=== PATIENT | female | born 1945 | race Caucasian/White ===

== ENCOUNTER 2025-01-16 17:34 | Emergency (ER) | payer MEDICARE, SELFPAY ==
[2025-01-16 17:52] VITALS: BP 171/83
[2025-01-16 20:36] VITALS: BP 133/85
--- NOTE | 2025-01-16 22:06 | ED.GENMED ---
History of Present Illness
General
Chief Complaint: Post Operative Problem(s)
Source: patient and family
Time Seen by Provider: 01/16/25 20:20
History of Present Illness
History of Present Illness:
79-year-old female who presents after her wound from arteriogram started bleeding. The patient states that she had a procedure at an outside hospital. She states she was home and had reached for spoon and all of a sudden started to squirt
everywhere. She states she did get under control but had already called 911. They found her to be extremely hypertensive. They called her doctor who asked them to recheck her blood pressure. Because it remained elevated, advised her to come to
the hospital. Patient states the bleeding is since subsided. Blood pressure since improved and she feels okay. Family states they are worried because she was bleeding so profusely. Daughter is worried that she could bleed again at home
Past History
Past History
ED Past Medical History: HTN and Other (Fibromuscular dysplasia)
Phy Exam
Physical Exam
Physical Exam:
CONSTITUTIONAL Vital signs reviewed, Patient alert and oriented to person, place and time. Well-appearing
HEAD atraumatic, normocephalic.
EYES eyelids normal to inspection, Extraocular muscles intact, Conjunctiva normal, Sclera normal.
NECK normal range of motion, Trachea midline, no jugular venous distention.
RESP no respiratory distress
BACK No obvious deformities
UPPER EXTREMITY Gross Range of motion normal, gross motor strength normal. Right radial puncture wound noted with no active bleeding. There is some surrounding ecchymosis
LOWER EXTREMITY Gross range of motion normal, Gross motor strength normal
NEURO Speech normal, No focal motor deficits include, Gilbert coma scale 15, Memory normal, Cranial Nerves intact to screening exam.
SKIN Skin warm, dry, and normal in color.
PSYCHIATRIC Patient oriented to person place and time, Normal affect.
Course
Vital Signs
Initial and Last Documented VS:
Initial Vital Signs
Temp Pulse Resp BP Pulse Ox
98.6 F 75 18 171/83 100
01/16/25 17:52 01/16/25 17:52 01/16/25 17:52 01/16/25 17:52 01/16/25 17:52
Last Documented Vital Signs
Temp Pulse Resp BP Pulse Ox
98.6 F 73 16 133/85 96
01/16/25 17:52 01/16/25 20:36 01/16/25 20:36 01/16/25 20:36 01/16/25 20:36
MDM/Problems Addressed
MDM/Problems Addressed:
Postoperative bleeding
Acute Exacerbation and/or Progression of Chronic Illness: HTN
*Pulse Oximetry
Patient hypoxic: no
*Critical Care Note
Total Time (30-74mins, 75-104mins- exclusive of procedures): Not Applicable
Data Reviewed
Source: patient
Patient Management
Escalation/DeEscalation of care consider admission/obs:
Compressive dressing applied. Patient monitored and observed. No further bleeding noted. Advised patient to leave the dressing intact for the next 36 hours. She will follow-up as an outpatient. Also given advice for bleeding control if it were
to occur again.
ED Attending Note
-
Portions of this chart may have been created with voice recognition software.� Occasional wrong word or��sound alike� substitutions may have occurred due to the inherent limitations of voice recognition software.
Discharge Plan
Departure
Patient Disposition: Home (Routine Discharge)
Date of Disposition: 01/16/25
Time of Disposition: 22:06
Patient with high blood pressure during this ER visit?: No
Discharge Problem:
Bleeding from wound
Instructions: Bleeding After Surgery
Referrals:
Marya Crump MD [Family Provider] -
Activity Restrictions/Additional Instructions:
Return immediately for worsening or recurrent bleeding or any other concerns. Please keep dressing intact for the next 36 hours. Return for numbness, tingling or any other concerns.
Interventions
Interventions:
*Risk Screen - Suicide Last Done: 01/16/25 20:12
*General Assessment Last Done: 01/16/25 20:12
*Neglect/Abuse Screening Last Done: 01/16/25 20:12
*ED COVID-19 Vaccine History Last Done: 01/16/25 20:12
*Nursing Disposition Last Done: 01/16/25 22:16
ED-Skin Assessment Last Done: 01/16/25 20:12
Discharge Date and Time
Discharge Date/Time: 01/16/25 22:17
Print Language: [place] ISLAND[place]
== END 2025-01-16 22:17 | disposition home or self-care (01) ==
LOC: EMR 17:34
PROVIDERS: EMERGENCY PHYSICIAN Emergency Medicine; FAMILY PHYSICIAN Internal Medicine Geriatric Medicine
DX: L76.22 Postprocedural hemorrhage of skin and subcutaneous tissue following other procedure (principal); I10 Essential (primary) hypertension
CPT/HCPCS: 99283

== ENCOUNTER 2025-08-29 07:12 | Inpatient (IN) | payer OTHER, SELFPAY ==
[2025-08-28 16:00] VITALS: BP 138/93
[2025-08-28] MEDS: ROXICODONE 10 MG PO ×2 (17:12→20:14)
--- NOTE | 2025-08-28 19:42 | ED.GENMED ---
History of Present Illness
General
Chief Complaint: Fall
Source: patient
Exam Limitations: none
Time Seen by Provider: 08/28/25 19:27
Nursing documentation reviewed up to this point in time: agreed with
History of Present Illness
History of Present Illness:
80-year-old female with past medical history of hypertension, chronic back pain status post multiple surgeries, chronic neuropathy who presents to the emergency department for evaluation of bilateral ankle injury. Patient currently lives
independently at [facility]; she is able to get around on her own in the apartment but for long distances she needs a rollator. Patient reports that she has neuropathy and poor sensation in the feet chronically. She says that today she was
sitting at the table for a long time and when she stood up her feet were asleep and she lost her balance and fell backwards. She landed on her left hip and while she was going to the ground she says she inverted both ankles. She says she did not
hit her head or lose consciousness. EMS was called to bring her to the hospital. She complains of bilateral left greater than right ankle pain as well as left hip pain. She has chronic back pain but she says no worse than usual. Denies any neck
pain. Denies any rib pain or abdominal pain. Denies any pain in the upper extremities. She is on baby aspirin but no other blood thinners she says.
Past History
Past History
ED Past Medical History: HTN and Other (Fibromuscular dysplasia)
Review of Systems
Review of Systems
All Other Systems: ROS reviewed and negative except as documented in HPI and ROS
Respiratory: Denies trouble breathing
Cardiac: Denies chest pain
ABD/GI: Denies abdominal pain, nausea or vomiting
: Denies flank pain
Musculoskeletal: Reports joint pain (Bilateral ankle and left hip); Denies neck pain or back pain (Chronic and unchanged)
Neurological: Denies dizzy or headache
Phy Exam
Physical Exam
Physical Exam:
General: Awake, alert, oriented x3; no acute distress
Head: Normocephalic, atraumatic
Eyes: Conjunctiva normal
Throat: Airway intact, handling secretions
Neck: Trachea midline, no cervical spine tenderness, cervical surgical scars noted
Back: No signs of trauma the back or flank and no tenderness in the thoracic or lumbar spine; lumbar surgical scars noted
Lungs: Breathing comfortably with no evidence of respiratory distress
Heart: Regular rate, no chest wall tender
Abd: Soft, non distended, nontender
[place] warm and dry, no lacerations or abrasions
Extremities: On exam of the left lower extremity she has tenderness over the greater trochanter and left buttock but no bruising; she does have some pain on range of motion of the left hip; on exam of the left knee she has some mild tenderness over
the proximal fibula but no deformity, no joint effusion and good range of motion in the knee; on exam of the left ankle she has tenderness and bruising over the left lateral malleolus but no tenderness of the malleolus, fifth metatarsal, midfoot; on
exam of the right lower extremity she has no tenderness in the right hip and good range of motion without pain; she has some mild proximal fibular tenderness on the right but no joint effusion and good range of motion in the knee; on exam of the
right ankle she has some tenderness over the lateral malleolus anteriorly but no significant amount of swelling, no tenderness of the medial malleolus or calcaneus, no tenderness along the fifth metatarsal or the midfoot; she has good pulses
throughout both legs femoral, popliteal, DP //examination of the upper extremities reveals no tenderness or signs of trauma and she moves both arms freely without pain
Scores
Heart Failure Risk
Heart Failure Risk Score: Not Applicable
Heart Score for Chest Pain Patients
STEMI patient?: Not applicable
Withdrawal Assessment of Alcohol
Withdrawal Assessment Completed?: Not applicable
Course
Orders/Labs/Results
Orders:
Orders
08/28/25 16:04
Ankle, left 3 view CR [CR Ankle - Left Min 3 Views ] Urgent
Comment:
Reason For Exam: pain
CR Ankle - Right Min 3 Views * Urgent
Comment:
Reason For Exam: pain
08/28/25 17:09
Oxycodone [Roxicodone] 10 mg .ROUTE .STK-MED ONE
08/28/25 17:11
Oxycodone [Roxicodone] 10 mg PO NOW STA
08/28/25 19:40
Case Management Consult ONCE
Case Management Consult: Group Home Placement
CR Leg Tibia/fibula Left 2 Vw Urgent
Comment:
Reason For Exam: fibular pain and ttp s/p ankle injury
CR Leg Tibia/fibula Right 2 Vw Urgent
Comment:
Reason For Exam: fibular pain and ttp s/p ankle injury
Pt Eval And Treat Urgent
Activity Level: With Assistance
08/28/25 19:41
Ortho Boot Left- Treatment ONCE
Short or tall?: Short
CR Hip - LT w/wo Pel 2-3 Vw* Urgent
Comment:
Reason For Exam: left hip pain s/p fall
Include a pelvis x-ray?: Yes
08/28/25 20:08
Oxycodone [Roxicodone] 10 mg PO NOW STA
Vital Signs
Initial and Last Documented VS:
Initial Vital Signs
Temp Pulse Resp BP Pulse Ox
36.8 C 71 18 138/93 95
08/28/25 16:00 08/28/25 16:00 08/28/25 16:00 08/28/25 16:00 08/28/25 16:00
Last Documented Vital Signs
Temp Pulse Resp BP Pulse Ox
36.8 C 71 18 138/93 95
08/28/25 16:00 08/28/25 16:00 08/28/25 16:00 08/28/25 16:00 08/28/25 19:48
MDM/Problems Addressed
Differential Diagnosis Includes:
Hip pain: Hip contusion, bursitis, fracture (femoral, pelvic)
Ankle injuries: Sprain, fracture
MDM/Problems Addressed:
80-year-old female presents after a fall as described above. She complains of pain in both ankles also complains of some left hip pain. No head trauma or any other serious injuries and she is not on blood thinners. Vitals and exam are as above.
She was sent for bilateral ankle x-rays in triage�reviewed by me right ankle x-ray no fracture noted but she does have a fibular fracture on the left. Will plan to obtain x-rays of the proximal tibia/fib bilaterally as she does have some tenderness
along the proximal fibula bilaterally. Will obtain x-ray of the left hip as well. Will place a splint on the left ankle. Discussed with patient�currently lives independently and with bilateral leg injury and baseline ambulatory status somewhat
tenuous will need to be kept overnight pending case management/PT consultation for safe placement/disposition.
X-rays reviewed by ne proximal fractures of the lower legs bilaterally and no hip fracture noted. Patient due for evening dose of oxycodone which we provided. Admit for case management/PT. Discussed with hospitalist.
*Radiology
Radiology exam reviewed: preliminary read by ED provider
*Pulse Oximetry
SaO2: 95
Oxygen Mode of Delivery: Room air
Patient hypoxic: no (95%)
*Critical Care Note
Total Time (30-74mins, 75-104mins- exclusive of procedures): Not Applicable
Data Reviewed
Source: patient and records
Patient Management
Social determinants of health affecting care: Living situation (Lives independently)
Escalation/DeEscalation of care consider admission/obs:
Admission indicated
ED Attending Note
-
Portions of this chart may have been created with voice recognition software.� Occasional wrong word or��sound alike� substitutions may have occurred due to the inherent limitations of voice recognition software.
Discharge Plan
Departure
Patient Disposition: Admit
Date of Disposition: 08/28/25
Time of Disposition: 21:11
Admit to doctor: [facility]
Presentation/result/management discussed w/ accepting MD/DO: Hospitalist
Discharge Problem:
Fracture of left fibula, Right ankle sprain, Contusion of left hip
Referrals:
UNKNOWN - PT DOES,NOT KNOW [Family Provider]
Interventions
Interventions:
*Risk Screen - Suicide Last Done: 08/28/25 16:00
*Neglect/Abuse Screening Last Done: 08/28/25 16:00
*ED- Fall Risk Assessment Last Done: 08/28/25 16:00
ED-Musculoskeletal Assessment Last Done: 08/28/25 17:00
ED- Neurological Assessment Last Done: 08/28/25 17:00
ED-Skin Assessment Last Done: 08/28/25 17:00
Discharge Date and Time
Print Language: NORTHER[place] IRISH
--- NOTE | 2025-08-28 21:15 | HPS.HSE ---
Addendum entered and electronically signed by Mehul Kessler DO 08/28/25 22:10:
Patient seen and examined independently. Agree with findings and plan as set forth by JULITO Quijano.
Patient is a 80y F with PMH significant for hypertension and chronic back pain who presents to ED complaining of bilateral ankle pain s/p fall this afternoon. Patient states that she was sleeping in a chair for some time today. When she woke
and stood, she had lost feeling in her legs and she fell - twisting to the left. She denies striking her head, losing consciousness or any prodrome of lightheadedness, dizziness, chest pain, etc.
Patient noted immediate pain in both ankles after the fall.
She presented to the ED for evaluation and x-rays revealed fracture of the L ankle.
Ass:
Left Ankle Fracture
Right Ankle Sprain
Fall at Home
Peripheral Neuropathy
Chronic Back Pain / DDD
Benign Hypertension
Plan:
Observe overnight for further evaluation and treatment.
Maintain splint / boot to the L ankle.
Pain control / supportive care.
PT / OT evaluations.
Ortho follow-up as an outpatient for L ankle fracture.
Continue usual home med regimen for chronic pain, hypertension, etc.
Original Note:
Family Physician
-
Family Physician: NOT KNOW UNKNOWN - PT DOES
Chief Complaint
-
fall
History of Present Illness
80-year-old female with past medical history of hypertension, chronic back pain status post multiple surgeries, chronic neuropathy who presents to the emergency department for evaluation of bilateral ankle injury. she is from [facility].
Patient reports that she has neuropathy and poor sensation in the feet chronically. She says that today she was sitting at the table for a long time and she fell asleep and when she stood up her feet were asleep and she lost her balance and fell
backwards. she fell on her left side, and twisted bilateral ankle. She says she did not hit her head or lose consciousness. she has chronic back pain. denied RODRIGUEZ, dizzy or syncope. denied fever, chills, chest pain, sob. denied abdominal pain,n,v,d.
denied dysuria or hematuria.
x ray with ankle fracture. admitting for further work management.
Medical History
Past Medical History
Past Medical History: Reports Other
Additional Past Medical History:
HTN
degenerative disk disease
HLD
neuropathy
chronic back pain
Past Surgical History: Reports Other
Additional Past Surgical History:
back surgery
d&C
b/l knee replacement
right hip replacement
left shoulder replacement
Social History
Tobacco: Non-smoker
Alcohol: None
Drug: None
Family History
Family History: Not pertinent
Allergies / Home Medications
Allergies reflects when Allergies were last updated in [email or web address].
Home Medications with original date entered in [email or web address]
Allergy/Medication List:
Allergies
Allergy/AdvReac Type Severity Reaction Status Date / Time
tramadol Allergy Unknown Verified 01/16/25 17:56
Home Medications
amlodipine 10 mg tablet 10 mg PO DAILY 08/28/25
benazepril 40 mg tablet 40 mg PO DAILY 08/28/25
carvedilol 12.5 mg tablet (Coreg) 12.5 mg PO BID 08/28/25
gabapentin 300 mg capsule 300 mg PO DAILY 08/28/25
gabapentin 600 mg tablet 600 mg PO HS 08/28/25
nortriptyline 10 mg capsule 10 mg PO HS 08/28/25
oxycodone 10 mg tablet,oral ONLY (not feeding tubes) 10 mg PO Q8H 08/28/25
rosuvastatin 5 mg tablet 5 mg PO DAILY 08/28/25
Review of Systems
-
Constitutional: Reports No Symptoms
EENT: Reports No Symptoms
Respiratory: Reports No Symptoms
Cardiac: Reports No Symptoms
Abdomen/GI: Reports No Symptoms
: Reports No Symptoms
Musculoskeletal: Reports Other (b/l ankle pain)
Skin: Reports No Symptoms
Neurological: Reports No Symptoms
Endocrine: Reports No Symptoms
Hematologic/Lymphatic: Reports No Symptoms
Psych: Reports No Symptoms
Physical Exam
Vital Signs
Vital Signs
Temp Pulse Resp BP Pulse Ox
98.3 F 71 18 138/93 95
08/28/25 16:00 08/28/25 16:00 08/28/25 16:00 08/28/25 16:00 08/28/25 19:48
Physical Exam
General: Well Developed, Well Nourished and No Apparent Distress
HEENT: NormoCephalic, Moist mucous membranes and Atraumatic
Respiratory: Clear
Cardiac: S1/S2 and Regular Rhythm; No Murmur or Rub
GI: Soft, Non Tender, Non Distended and Normal Bowel Sounds; No Organomegaly
Rectal: Deferred by Provider
Musculoskeletal: No Clubbing, No Cyanosis and Other (right ankle edema)
Skin: No Rash
Neuro: AO x 3 and Nonfocal/grossly intact
Psych: Calm
Impression/Plan
-
#mechanical fall with left ankle fracture
#right ankle sprain
#left hip contusion
-PT consulted
-CM consulted for placement
-left ortho boot in place.
#essential HTN
-Norvasc, benazepril, coreg continued
#neuropathy
-gabapentin continued
#degenerative disk disease
#chronic back pain
-oxycodone continued
#HLD
-statin continued
#DvT prophylaxis
-heparin sq
#CODE status
-full code
[2025-08-28 21:38] VITALS: BP 117/64; BMI 25.2
[2025-08-28 21:56] LABS: Hematocrit 38.6 % (37.0-47.0); Hemoglobin 12.9 g/dL (12.0-16.0); Mean Corp Hgb Conc. 33.4 g/dL (33.0-37.0); Mean Corpuscular Volume 89.1 fL (81.0-99.0); Platelet Count 269 10^3/uL (130-400); Red Cell Dist. Width 13.1 % (11.5-14.5)
[2025-08-28] MEDS: NEURONTIN 600 MG PO (22:15)
[2025-08-28] MEDS: PAMELOR 10 MG PO (22:15)
[2025-08-28 22:20] LABS: ALT (SGPT) 19 U/L (0-35); AST (SGOT) 22 U/L (14-36); Albumin 4.4 g/dl (3.5-5.0); Alkaline Phosphatase 84 U/L (38-126); Blood Urea Nitrogen 28 mg/dl (7-17); Calcium 9.8 mg/dl (8.4-10.2); Carbon Dioxide 29 mmol/L (22-30); Chloride 103 mmol/L (98-107); Estimated Creatinine Clearance 38 ml/min; Glucose 167 mg/dl (70-99); Potassium 3.5 mmol/L (3.5-5.1); Sodium 137 mmol/L (135-145); Total Protein 6.7 g/dl (6.3-8.2); eGFR 57.66
[2025-08-29] VITALS: BP 122/55
[2025-08-29 00:13] VITALS: BMI 25.9
--- NOTE | 2025-08-29 00:14 | PTCARENOTE ---
Patient arrived from ED to [address],assisted from stretcher to bed. Pt's L ankle in ortho boot, elevated on pillow. Pt AAOx3, oriented to room and plan of care, can make needs known. VSS, assessment on going.
[2025-08-29] MEDS: COLACE 100 MG PO ×3 (00:44→20:31)
[2025-08-29] MEDS: TYLENOL 650 MG PO ×6 (00:45→23:35)
[2025-08-29] MEDS: SENOKOT 17.2 MG PO ×3 (00:45→20:31)
[2025-08-29] MEDS: ROXICODONE 10 MG PO ×4 (00:45→23:35)
[2025-08-29] MEDS: TYLENOL PO (04:50)
[2025-08-29 07:30] VITALS: BP 117/59
[2025-08-29] MEDS: ZESTRIL 40 MG PO (07:58)
[2025-08-29] MEDS: NORVASC 10 MG PO (07:58)
[2025-08-29] MEDS: CRESTOR 5 MG PO (07:59)
[2025-08-29] MEDS: HEPARIN 5000 UNITS SC (07:59)
[2025-08-29] MEDS: COREG 12.5 MG PO (07:59)
[2025-08-29] MEDS: NEURONTIN 300 MG PO (07:59)
--- NOTE | 2025-08-29 09:36 | W.PN.HOSP.TC ---
Today's Communication/Plan
-
Preop EKG
N.p.o. past midnight for surgery
Assessment / Plan
Assessment / Plan
Physical Exam
General: Well Developed, Well Nourished and No Apparent Distress
HEENT: NormoCephalic, Moist mucous membranes and Atraumatic
Respiratory: Clear
Cardiac: S1/S2 and Regular Rhythm; No Murmur or Rub
GI: Soft, Non Tender, Non Distended and Normal Bowel Sounds; No Organomegaly
Rectal: Deferred by Provider
Musculoskeletal: No Clubbing, No Cyanosis and Other (right ankle edema)
Skin: No Rash
Neuro: AO x 3 and Nonfocal/grossly intact
Psych: Calm
# Acute left bimalleolar ankle fracture
#right ankle sprain
#left hip contusion
Unable to walk and discomfort. Not safe for discharge planning without inpatient Ortho evaluation
d/w ortho, plan for open reduction internal fixation of her left ankle fracture on August 30, 2025.
Pain control.
# preop evaluation
Patient denies history of angina, congestive heart failure. She takes her medication for blood pressure without complications. Will get preop EKG. Patient is unable to ambulate and in discomfort. Repair of left ankle fracture outweigh the risk
of surgery. No prohibitive factor to surgery.
#essential HTN
-Norvasc, benazepril, HCTZ, Coreg continued
# Chronic pain syndrome with opioid dependency/history of nonspecific neuropathy
#degenerative disk disease
#chronic back pain
-oxycodone continued
#HLD
-statin continued
#DvT prophylaxis
-heparin sq, holding subcu heparin pending surgery
#CODE status
-full code
Total time spent to see the patient, examine the patient, review data and lab results, discuss treatment plan with patient, orthopedic doctor, nursing staff around 55 minutes�
Anticipated Discharge: > 48 hours
Subjective/Interval History
-
Date of Service: August 29, 2025
She is having pain and swelling in both ankle areas, requesting to see ortho
Objective Data
-
Labs:
Laboratory Results
08/28/25
21:44
WBC 8.2
Hgb 12.9
Hct 38.6
Plt Count 269
Sodium 137
Potassium 3.5
Chloride 103
Carbon Dioxide 29
BUN 28 H
Creatinine 1.0
Glucose 167 H
Calcium 9.8
Total Bilirubin 0.4
AST 22
ALT 19
Alkaline Phosphatase 84
Vital Signs:
Vital Signs
Temp Pulse Resp BP Pulse Ox
97.8 F 58 16 117/59 96
08/29/25 07:30 08/29/25 07:30 08/29/25 07:30 08/29/25 07:30 08/29/25 07:30
--- NOTE | 2025-08-29 10:51 | CON.ORTHO ---
Consultation
-
Date/Time Consultation Requested: 29AUG2025 07:15
Date/Time Consultation Performed: 29AUG2025 09:00
Requesting Provider: Dionne Mendoza
Performing Provider: Murphy Sherman MD
Reason for Consultation: left ankle fracture
Consultation - Orthopedics
History
Ms. Cheng is a 80-year-old female with past medical history hypertension and chronic back pain who presented to us from hospital emergency with bilateral ankle pain after sustaining a ground-level fall at home. She states she was sleeping in a
chair when her feet fell asleep. When she woke up and tried to walk she sustained a mechanical ground-level fall. She states she sustained an inversion injury to her bilateral ankles. She presents to the hospital emergency room where x-rays
determined the patient had a left bimalleolar ankle fracture and a right ankle sprain. Due to her difficulty with ambulation the patient was admitted for pain control and management of her left ankle fracture. Patient denies numbness and tingling.
She denies prior injury or surgery. She has had bilateral total knee arthroplasties performed in the past.
LLE:
Skin intact, swelling about lateral ankle
TTP medial and lateral malleoli
Pain with passive range of motion of the ankle
5/5 dorsi and plantarflexion with pain
Palpable DP PT pulses brisk capillary refill
Sensation intact to light touch in all dermatomes
X-rays of the left ankle performed at [facility] significant for minimally displaced left fibular fracture at the level syndesmosis with a minimally displaced transverse right medial malleolus fracture
X-rays of the right ankle performed at [facility] significant for no obvious fracture, dislocation, or other acute osseous abnormality.
Allergies / Home Medications
Allergy/AdvReac Type Severity Reaction Status Date / Time
tramadol Allergy Unknown Verified 01/16/25 17:56
�Medication �Instructions �Recorded
amlodipine 10 mg tablet 10 mg PO DAILY 08/28/25
benazepril 40 mg tablet 40 mg PO DAILY 08/28/25
carvedilol 12.5 mg tablet (Coreg) 12.5 mg PO BID 08/28/25
gabapentin 300 mg capsule 300 mg PO DAILY 08/28/25
gabapentin 600 mg tablet 600 mg PO HS 08/28/25
nortriptyline 10 mg capsule 10 mg PO HS 08/28/25
oxycodone 10 mg tablet,oral ONLY 10 mg PO Q8H 08/28/25
(not feeding tubes)
rosuvastatin 5 mg tablet 5 mg PO DAILY 08/28/25
hydrochlorothiazide 12.5 mg 08/29/25
Vital Signs / Lab Results
Temp Pulse Resp BP Pulse Ox
97.8 F 58 16 117/59 96
08/29/25 07:30 08/29/25 07:30 08/29/25 07:30 08/29/25 07:30 08/29/25 07:30
08/28/25 21:44
08/28/25 21:44
Assessment / Plan
Ms. Cheng is a 80-year-old female with a left bimalleolar ankle fracture
Due to her difficulty with ambulation she was admitted. With casting or other nonoperative modalities since the patient was hospitalized for her pain and difficulty with ambulation, we will schedule her for open reduction internal fixation of her
left ankle fracture on August 30, 2025. At that time we will likely allow her to bear weight with the assistance of a walker to aid in her rehabilitation and discharge to home. The risk of the procedure including failure fracture to heal, damage
nearby structures, bleeding, infection, or even were discussed. Understanding these risks patient signed consent form for open reduction internal fixation of the left ankle fracture. We will make her n.p.o. at midnight
[2025-08-29] MEDS: ROXICODONE 5 MG PO (12:15)
--- NOTE | 2025-08-29 13:15 | CM ---
Met with patient at bedside
KULKARNI form explained; form signed @ 1300
Pharmacy verified: [facility] @ [id number] [facility] Rina Lucas
Family Physician: Dr. Garcia @ [facility]
Lives in an apartment @ [facility]
PLOF: Was independent w/ personal care; building has elevator access; she was not using a device w/ ambulation in her apartment; used Rollator when she left her home;
had meals in dining room; drives
Her daughter lives nearby in [place]
No recent SNF utilization history; Acute Rehab stay @ [facility] 2017
Home Health needed in November 2023; services provided by [facility]
Surgery planned for tomorrow
Discharge Plan to be determined; Case Management will monitor and support disposition coordination when recommendations identified
[2025-08-29 15:46] VITALS: BP 123/66
[2025-08-29] MEDS: COREG PO ×2 (20:31→21:11)
[2025-08-29] MEDS: NEURONTIN 600 MG PO (21:27)
[2025-08-29] MEDS: PAMELOR 10 MG PO (21:28)
[2025-08-29 23:13] VITALS: BP 117/57
[2025-08-30] VITALS (11 sets, daily range): BP systolic 119–161; BP diastolic 57–135
[2025-08-30] MEDS: TYLENOL PO ×3 (05:19→16:00)
[2025-08-30 07:10] LABS: Hematocrit 36.8 % (37.0-47.0); Hemoglobin 12.5 g/dL (12.0-16.0); Mean Corp Hgb Conc. 34.0 g/dL (33.0-37.0); Mean Corpuscular Volume 90.9 fL (81.0-99.0); Platelet Count 216 10^3/uL (130-400); Red Cell Dist. Width 13.0 % (11.5-14.5)
[2025-08-30 07:47] LABS: Blood Urea Nitrogen 22 mg/dl (7-17); Calcium 9.7 mg/dl (8.4-10.2); Carbon Dioxide 30 mmol/L (22-30); Chloride 106 mmol/L (98-107); Estimated Creatinine Clearance 47 ml/min; Glucose 90 mg/dl (70-99); Potassium 3.9 mmol/L (3.5-5.1); Sodium 139 mmol/L (135-145); eGFR > 60.00
[2025-08-30] MEDS: TYLENOL 650 MG PO ×2 (08:14→20:30)
[2025-08-30] MEDS: SENOKOT PO ×2 (08:15→08:17)
[2025-08-30] MEDS: NORVASC 10 MG PO (08:15)
[2025-08-30] MEDS: CRESTOR 5 MG PO (08:15)
[2025-08-30] MEDS: COLACE PO ×3 (08:15→21:04)
[2025-08-30] MEDS: NEURONTIN 300 MG PO (08:15)
[2025-08-30] MEDS: ROXICODONE 10 MG PO (08:15)
[2025-08-30] MEDS: COREG 12.5 MG PO ×2 (08:15→20:29)
[2025-08-30] MEDS: ZESTRIL 40 MG PO (08:15)
--- NOTE | 2025-08-30 09:24 | W.PN.HOSP.TC ---
Today's Communication/Plan
-
.
Assessment / Plan
Assessment / Plan
Physical Exam
General: Well Developed, Well Nourished and No Apparent Distress
HEENT: NormoCephalic, Moist mucous membranes and Atraumatic
Respiratory: Clear
Cardiac: S1/S2 and Regular Rhythm; No Murmur or Rub
GI: Soft, Non Tender, Non Distended and Normal Bowel Sounds; No Organomegaly
Rectal: Deferred by Provider
Musculoskeletal: No Clubbing, No Cyanosis and Other (right ankle edema)
Skin: No Rash
Neuro: AO x 3 and Nonfocal/grossly intact
Psych: Calm
# Acute left bimalleolar ankle fracture
#right ankle sprain
#left hip contusion
Unable to walk and discomfort. Not safe for discharge planning without inpatient Ortho evaluation
d/w ortho, plan for open reduction internal fixation of her left ankle fracture on August 30, 2025.
Pain control.
# preop evaluation
Patient denies history of angina, congestive heart failure. She takes her medication for blood pressure without complications. Preop EKG with no acute ischemic changes or dysrhythmia except mild bradycardia/first-degree AV block. Patient is
unable to ambulate and in discomfort. Repair of left ankle fracture outweigh the risk of surgery. No prohibitive factor to surgery.
#essential HTN
-Norvasc, benazepril, HCTZ, Coreg continued
Ordered HCTZ postop
# Chronic pain syndrome with opioid dependency/history of nonspecific neuropathy
#degenerative disk disease
#chronic back pain
-oxycodone continued
#HLD
-statin continued
#DvT prophylaxis
-heparin sq, holding subcu heparin pending surgery
#CODE status
-full code
Total time spent to see the patient, examine the patient, review data and lab results, discuss treatment plan with patient, orthopedic doctor, nursing staff around 55 minutes�
Anticipated Discharge: > 48 hours
Subjective/Interval History
-
Date of Service: August 30, 2025
Pain in her ankle, NPO for surgery today
No chest pain or sob
Objective Data
-
Labs:
Laboratory Results
08/30/25
06:13
WBC 5.0
Hgb 12.5
Hct 36.8 L
Plt Count 216
Sodium 139
Potassium 3.9
Chloride 106
Carbon Dioxide 30
BUN 22 H
Creatinine 0.8
Glucose 90
Calcium 9.7
Vital Signs:
Vital Signs
Temp Pulse Resp BP Pulse Ox
97.7 F 64 16 147/83 97
08/30/25 07:00 08/30/25 07:00 08/30/25 07:00 08/30/25 07:00 08/30/25 07:00
--- NOTE | 2025-08-30 09:51 | W.PN.UPDATE ---
Update Note
Progress Note Update
Patient in bed this morning, comfortable. Has been n.p.o. since midnight, pending ORIF left ankle. OR availability likely early afternoon
- Continue n.p.o.
- Pain management as needed
- Likely OR today
[2025-08-30] MEDS: ROXICODONE PO (16:00)
--- NOTE | 2025-08-30 18:21 | W.IMMPOSTOP ---
Surgical Immed Post Op Note
-
Primary Surgeon: Murphy Sherman MD
Assisting Surgeon:
Pre-op Diagnosis: left bimalleolar ankle fracture
Post-op Diagnosis: left bimalleolar ankle fracture
Procedure Performed: open reduction internal fixation left ankle
Anesthesia Type: general with regional
Specimen / Cultures: none
Estimated Blood Loss: 5mL
Complications: none apparent
Operative Findings: bimalleolar ankle fracture
Implants: [place] Variax2 4-hole lateral distal fibula plate; 4.0mm partially threaded 40mm cannulated screws x2
Operative dictation #: [id number]
[2025-08-30] MEDS: SENOKOT 17.2 MG PO (20:29)
[2025-08-30] MEDS: COLACE 100 MG PO (20:29)
[2025-08-30] MEDS: ROXICODONE 5 MG PO (20:30)
[2025-08-30] MEDS: PAMELOR 10 MG PO (21:43)
[2025-08-30] MEDS: NEURONTIN 600 MG PO (21:44)
[2025-08-31] MEDS: ANCEF 5 IV ×2 (00:14→08:28)
[2025-08-31] MEDS: ROXICODONE 10 MG PO ×4 (00:14→23:33)
[2025-08-31] MEDS: TYLENOL 650 MG PO ×6 (00:14→23:33)
--- NOTE | 2025-08-31 01:40 | PTCARENOTE ---
Received pt from pacu s/p left ankle ORIF, alert, ox3, vs stable surgical boot in place.
[2025-08-31] MEDS: TYLENOL PO (04:46)
[2025-08-31 07:15] VITALS: BP 158/79
[2025-08-31 07:32] LABS: Hematocrit 34.8 % (37.0-47.0); Hemoglobin 11.6 g/dL (12.0-16.0); Mean Corp Hgb Conc. 33.3 g/dL (33.0-37.0); Mean Corpuscular Volume 88.5 fL (81.0-99.0); Platelet Count 241 10^3/uL (130-400); Red Cell Dist. Width 13.0 % (11.5-14.5)
[2025-08-31 08:17] LABS: Blood Urea Nitrogen 18 mg/dl (7-17); Calcium 9.4 mg/dl (8.4-10.2); Carbon Dioxide 28 mmol/L (22-30); Chloride 106 mmol/L (98-107); Estimated Creatinine Clearance 47 ml/min; Glucose 135 mg/dl (70-99); Potassium 4.1 mmol/L (3.5-5.1); Sodium 137 mmol/L (135-145); eGFR > 60.00
[2025-08-31] MEDS: ORETIC 12.5 MG PO (08:24)
--- NOTE | 2025-08-31 08:24 | W.PN.ORTHO ---
Today's Communication / Plan
-
80-year-old female postoperative 1 left bimalleolar ankle ORIF with Dr. Sherman
- Partial weightbearing left lower extremity with a cam boot.
- Pain controlled on current regimen with continued nerve block.
- Diet per primary
- Pain per primary
- DVT PPx; aspirin daily either 81 mg twice daily or 325 daily unless recommended otherwise per primary
Suspected right ankle sprain; pending her ability to bear weight if unable to do so recommend advanced imaging of MRI for diagnostic purposes to ensure patient be full weightbearing without causing further harm. Pending response with physical
therapy today. Orthopedic surgery will continue to follow
Assessment
.
Distal Motor Intact: Yes
Dressing:
Clean, dry and intact.
Plan
.
Surgery / Date: L ankle ORIF 08/30
Activity:
Out of bed.
PT/OT
Subjective
.
.:
Patient resting comfortably.
Vital Signs and Labs
.
Vital Signs and Labs:
Lab Results
08/31/25 07:05
08/31/25 07:05
Temp Pulse Resp BP Pulse Ox
98.2 F 94 18 146/87 95
08/30/25 22:15 08/30/25 22:15 08/30/25 22:15 08/30/25 22:15 08/30/25 22:15
[2025-08-31] MEDS: ZESTRIL 40 MG PO (08:25)
[2025-08-31] MEDS: COLACE 100 MG PO ×2 (08:25→20:14)
[2025-08-31] MEDS: CRESTOR 5 MG PO (08:26)
[2025-08-31] MEDS: NEURONTIN 300 MG PO (08:26)
[2025-08-31] MEDS: COREG 12.5 MG PO ×2 (08:27→20:14)
[2025-08-31] MEDS: SENOKOT 17.2 MG PO ×2 (08:27→20:15)
[2025-08-31] MEDS: NORVASC 10 MG PO (08:28)
--- NOTE | 2025-08-31 10:04 | W.PN.HOSP.TC ---
Today's Communication/Plan
-
See plan
Assessment / Plan
Assessment / Plan
Physical Exam
General: Well Developed, Well Nourished and No Apparent Distress
HEENT: NormoCephalic, Moist mucous membranes and Atraumatic
Respiratory: Clear
Cardiac: S1/S2 and Regular Rhythm; No Murmur or Rub
GI: Soft, Non Tender, Non Distended and Normal Bowel Sounds; No Organomegaly
Rectal: Deferred by Provider
Musculoskeletal: No Clubbing, No Cyanosis and Other (right ankle edema)
Skin: No Rash
Neuro: AO x 3 and Nonfocal/grossly intact
Psych: Calm
# Acute left bimalleolar ankle fracture
#right ankle sprain
#left hip contusion
Unable to walk and discomfort. Not safe for discharge planning without inpatient Ortho evaluation
d/w ortho, had open reduction internal fixation of her left ankle fracture on August 30, 2025.
Pain control.
# preop evaluation
Patient denies history of angina, congestive heart failure. She takes her medication for blood pressure without complications. Preop EKG with no acute ischemic changes or dysrhythmia except mild bradycardia/first-degree AV block. Patient was
unable to ambulate and in discomfort. Repair of left ankle fracture outweigh the risk of surgery. No prohibitive factor to surgery.
-I communicated via [place] Text communication with orthopedics that patient should be continued on Aspirin 325 mg daily for 4 weeks, starting today
-Given suspected right ankle sprain; cannot bear weight, ortho recommended advanced imaging of MRI for diagnostic purposes
#essential HTN
-Norvasc, benazepril, HCTZ, Coreg continued
Ordered HCTZ postop
# Chronic pain syndrome with opioid dependency/history of nonspecific neuropathy
#degenerative disk disease
#chronic back pain
-oxycodone continued
#HLD
-statin continued
#DvT prophylaxis
-Aspirin 325 mg daily
#CODE status
-full code
Total time spent to see the patient, examine the patient, review data and lab results, discuss treatment plan with patient, orthopedic doctor, nursing staff around 55 minutes�
Anticipated Discharge: 24 - 48 hours
Subjective/Interval History
-
Date of Service: August 31, 2025
Patient was seen and examined. She denied any complaints.
Objective Data
-
Labs:
Laboratory Results
08/31/25
07:05
WBC 7.8
Hgb 11.6 L
Hct 34.8 L
Plt Count 241
Sodium 137
Potassium 4.1
Chloride 106
Carbon Dioxide 28
BUN 18 H
Creatinine 0.8
Glucose 135 H
Calcium 9.4
Vital Signs:
Vital Signs
Temp Pulse Resp BP Pulse Ox
97.8 F 83 16 158/79 98
08/31/25 07:15 08/31/25 08:27 08/31/25 07:15 08/31/25 08:28 08/31/25 07:15
I&O
08/30/25 08/31/25 09/01/25
06:59 06:59 06:59
Intake Total 200 / 200
Balance 200 / 200
[2025-08-31 11:04] VITALS: BP 158/72; PULSE 68; O2SAT 95
[2025-08-31 11:15] VITALS: BP 158/72; PULSE 68; O2SAT 95
[2025-08-31 15:35] VITALS: BP 107/50
--- NOTE | 2025-08-31 15:35 | CM ---
Patient seen at bedside on . Patient stated that she was anticipating possible more surgery, but she was clearly going to need SNF. [facility] at patient request following review of PAC data. CM will await
responses from snf facilities. CM will continue to follow for discharge planning needs.
Plan; SNF [facility] pending bed availability and will need auth.
[2025-08-31] MEDS: ASPIRIN 325 MG PO (20:14)
[2025-08-31] MEDS: PAMELOR 10 MG PO (21:43)
[2025-08-31] MEDS: NEURONTIN 600 MG PO (21:43)
[2025-08-31 23:24] VITALS: BP 110/63
[2025-09-01] MEDS: ROXICODONE 5 MG PO ×2 (04:04→12:37)
[2025-09-01] MEDS: TYLENOL 650 MG PO ×4 (04:04→15:35)
--- NOTE | 2025-09-01 07:25 | W.PN.HOSP.TC ---
Today's Communication/Plan
-
Discharge today
Assessment / Plan
Assessment / Plan
Physical Exam
General: Well Developed, Well Nourished and No Apparent Distress
HEENT: NormoCephalic, Moist mucous membranes and Atraumatic
Respiratory: Clear
Cardiac: S1/S2 and Regular Rhythm
GI: Soft, Non Tender, Non Distended and Normal Bowel Sounds
Musculoskeletal: No Cyanosis and Other (right ankle edema)
Skin: No Rash
Neuro: AO x 3 and Nonfocal/grossly intact
Psych: Calm
Assessment/Plan
#Acute left bimalleolar ankle fracture - STATUS POST Left ankle ORIF on 08/30/[address] Sherman - suspected multifactorial, low level trauma and age related osteoporosis
#Right ankle sprain
#Left hip contusion
Unable to walk and discomfort. Not safe for discharge planning without inpatient Ortho evaluation
d/w ortho, had open reduction internal fixation of her left ankle fracture on August 30, 2025.
Pain control.
# preop evaluation
Patient denies history of angina, congestive heart failure. She takes her medication for blood pressure without complications. Preop EKG with no acute ischemic changes or dysrhythmia except mild bradycardia/first-degree AV block. Patient was
unable to ambulate and in discomfort. Repair of left ankle fracture outweigh the risk of surgery. No prohibitive factor to surgery.
-I communicated via [employer] Text communication with orthopedics that patient should be continued on Aspirin 325 mg daily for 4 weeks, starting 08/31/25
-Given suspected right ankle sprain; cannot bear weight, ortho recommended advanced imaging of MRI for diagnostic purposes: right ankle MRI without any acute fracture
-WBAT with walker for RLE. Elevation and ice for pain control
-PWB LLE in CAM boot on walker
-A brace may help though for the right lower extremity. Patient can call Dr. Sherman's office and set up an appointment sooner than her two week follow up if she desires -- or could purchase a brace
-Outpatient Ortho follow-up in 2 weeks
#essential HTN
-Norvasc, benazepril, HCTZ, Coreg continued
Ordered HCTZ postop
#History of Fibromuscular Dysplasia?
# Chronic pain syndrome with opioid dependency/history of nonspecific neuropathy
#degenerative disk disease
#chronic back pain
-oxycodone continued
#HLD
-statin continued
#DvT prophylaxis
-Aspirin 325 mg daily
#CODE status
-full code
More than 30 minutes spent in discharge including
Final examination of the patient
Summarizing hospital stay
Instructions for continuing care to all relevant caregivers
Preparation of discharge records, prescriptions, and referral forms
Total time spent (in minutes): 41
Anticipated Discharge: Today
Subjective/Interval History
-
Date of Service: September 01, 2025
Patient was seen and examined. She denied any new symptoms or complaints.
Objective Data
-
Vital Signs:
Vital Signs
Temp Pulse Resp BP Pulse Ox
98.5 F 65 18 110/63 94
08/31/25 23:24 08/31/25 23:24 08/31/25 23:24 08/31/25 23:24 08/31/25 23:24
I&O
08/31/25 09/01/25 09/02/25
06:59 06:59 06:59
Intake Total 200 / 200 2009
Balance 200 / 200 2009
[2025-09-01 07:41] VITALS: BP 127/63
[2025-09-01] MEDS: ASPIRIN 325 MG PO (08:20)
[2025-09-01] MEDS: COLACE 100 MG PO (08:20)
[2025-09-01] MEDS: CRESTOR 5 MG PO (08:22)
[2025-09-01] MEDS: NORVASC 10 MG PO (08:22)
[2025-09-01] MEDS: NEURONTIN 300 MG PO (08:22)
[2025-09-01] MEDS: ORETIC PO (08:23)
[2025-09-01] MEDS: COREG 12.5 MG PO (08:23)
[2025-09-01] MEDS: SENOKOT 17.2 MG PO (08:24)
[2025-09-01] MEDS: ROXICODONE 10 MG PO ×2 (08:25→15:35)
[2025-09-01] MEDS: ZESTRIL 40 MG PO (08:26)
--- NOTE | 2025-09-01 08:32 | W.PN.ORTHO ---
Addendum entered and electronically signed by Connor Santamaria PA-C 09/01/25 10:45:
Right ankle MRI without occult fracture. Some nonspecific swelling and chronic changes noted with cyst formation and pathology around her lateral ligaments. Based on pain would recommend WBAT with her walker. Elevation and ice for pain control.
Nothing acute will be recommended by orthopedics during this admission. We can continue to follow along regarding her right ankle as an outpatient, as she will be scheduled to follow-up on her left ankle ORIF in about 2 weeks
Original Note:
Today's Communication / Plan
-
Appreciate the primary team, continue Tx
Dispo per CM, appreciate their efforts
PWB LLE in CAM boot on walker
PT/OT
ASA for DVT ppx, or per primary (81mg BID or 325mg daily) x 4 weeks
Pain control with elevation and ice
Will follow-up on right ankle MRI when complete this AM and make further recs
Outpatient Ortho follow-up in 2 weeks regardless
Will follow
Assessment
.
Distal Motor Intact: Yes
Dressing:
Clean, dry and intact. Dressings in place LLE
Assessment:
POD# Left ankle ORIF
Overall doing/feeling well
Calf soft, nontender
Plan
.
Surgery / Date: L ankle ORIF Aug 25 ([facility])
DVT Prophylaxis: Aspirin
Activity:
Out of bed. PWB LLE in boot on walker.
PT/OT
Discharge Plan: Other (appreciate CM)
Subjective
.
.:
Patient resting comfortably this AM. Heading for right ankle MRI. No significant left ankle pain endorsed
Vital Signs and Labs
.
Vital Signs and Labs:
Temp Pulse Resp BP Pulse Ox
98.0 F 62 18 127/63 95
09/01/25 07:41 09/01/25 07:41 09/01/25 07:41 09/01/25 07:41 09/01/25 07:41
--- NOTE | 2025-09-01 08:59 | PN.CDI ---
CDI
- -
CDI:
Physician Documentation Request
Admit Date: 08/29/25 07:12
Dear Doctor Anette,
Please review the following and provide your response in the progress notes.
Clinical Indicators:
08/29 Per scanned medical history, (Other Health Care Facility)
#...Age-related osteoporosis
ED, 08/28
#...past medical history of hypertension, chronic back pain status post multiple surgeries,
#...chronic neuropathy
#...today she was sitting at the table for a long time and
#...when she stood up her feet were asleep and she lost her balance and fell backwards. #...landed on her left hip and while she was going to the ground she says
#...she inverted both ankles.
H+P, 08/28
#...states that she was sleeping in a chair for some time today.
#...When she woke and stood, she had lost feeling in her legs and
#...she fell - twisting to the left.
#Past Surgical History:
#...back surgery
#...b/l knee replacement
#...right hip replacement
#...left shoulder replacement
PN, 08/31
# Acute left bimalleolar ankle fracture
#right ankle sprain
#left hip contusion
#...Unable to walk and discomfort.
#...Not safe for discharge planning without inpatient Ortho evaluation
#...open reduction internal fixation of her left ankle fracture on August 30, 2025.
Based on the above and your clinical assessment, please clarify the etiology of the acute left bimalleolar ankle fracture:
Multifactorial, low level trauma and age related osteoporosis
Traumatic fracture only
Other (please specify)
Type Fracture
Age-related With current pathological fx
Drug induced (specify drug) without current pathological fx
Idiopathic
Osteoporosis of disuse
Due to post surgical malabsorption
Post traumatic
Post oophorectomy osteoporosis
Use of terms such as suspected, likely, concern for, or probable (associated with a specific diagnosis that is being evaluated, monitored, or treated as if it exists) are acceptable and can be coded in the inpatient setting, when documented at the
time of discharge.
Thank you,
Janae Salazar RN BSN CCDS
CDI Specialist
Please contact via tiger text
Please use your independent medical judgment in providing your response.
--- NOTE | 2025-09-01 09:21 | CM ---
Patient will need SNF when stable for discharge; anticipated discharge 24-48 hours
T111/01/24 15:42 - Case Management Note by Nora Castro
Acct Num: [id number] : 11/20/1964 Patient Age: 60
Patient seen at bedside on [address]. Patient stated that he lives with his and son in a 2 story home. Patient plan is for discharge home with no needs but stated he would accept VN if insurance would cover cost. patient and thought that he
had [facility] the last time he needed VN. Patient PCP is Dr. Keys and he uses [facility] [place]. Patient has a walker from prior surgery. Patient plan is for discharge home with VN if insurance covered. CM will continue to follow for discharge
planning needs.
Plan; home with VN pending insurance coverage. [facility] if possible
Initialized on 08/31/25 15:42 - END OF NOTE
--- NOTE | 2025-09-01 09:29 | CM ---
Addendum entered by Kristi Cleaning 09/01/25 14:32:
met with patient at bedside
IMM benefit explained; form signed @ 1430
Addendum entered by Kristi Cleaning 09/01/25 14:19:
Facility notified of ambulance chicken picker time of 1630
Addendum entered by Kristi Cleaning 09/01/25 14:17:
ambulance chicken picker 1630
Addendum entered by Kristi Cleaning 09/01/25 12:13:
Authorization approved for [facility] SNF starting today, 09/01; next review 09/08; For Review, Fax Clinicals to # [phone], Gissel Alves; Auth # [id number]; Vivian @ Facility notified via phone
Plan: Discharge to [facility] SNF today; via ambulance
[facility]
Report # [phone]

Addendum entered by Kristi Cleaning 09/01/25 10:55:
[facility] unable to accept referral; insurance out of network
Spoke with patient; she is agreeable with going to [facility]; facility has a bed and can accept once AUTH is approved
Original Note:
[facility] will not have a SNF bed available this week; she recommended [facility] and [facility] for referrals. Case Management will offer those options to patient'
Patient's SNF alternative preference is [facility]; no response to referral in [facility]; left a voice mail this morning w/ facility's admission office regarding bed availability
Plan: Discharge to SNF when stable; pending bed availability and authorization approval
[2025-09-01 11:44] LABS: Hematocrit 35.4 % (37.0-47.0); Hemoglobin 11.9 g/dL (12.0-16.0); Mean Corp Hgb Conc. 33.6 g/dL (33.0-37.0); Mean Corpuscular Volume 90.1 fL (81.0-99.0); Platelet Count 243 10^3/uL (130-400); Red Cell Dist. Width 13.2 % (11.5-14.5)
[2025-09-01 11:59] LABS: Blood Urea Nitrogen 23 mg/dl (7-17); Calcium 9.5 mg/dl (8.4-10.2); Carbon Dioxide 32 mmol/L (22-30); Chloride 104 mmol/L (98-107); Estimated Creatinine Clearance 38 ml/min; Glucose 98 mg/dl (70-99); Potassium 4.0 mmol/L (3.5-5.1); Sodium 139 mmol/L (135-145); eGFR 57.66
[2025-09-01 15:33] VITALS: BP 125/56
== END 2025-09-01 16:41 | DRG 493 ==
LOC: 2 SOUTH 07:12
PROVIDERS: Internal Medicine; Registered Nurse; ADMITTING PHYSICIAN Hospitalist; ATTENDING PHYSICIAN Hospitalist; EMERGENCY PHYSICIAN Emergency Medicine; OTHER PHYSICIAN Student in an Organized Health Care Education/Training Program
PROC: 0QSH04Z Reposition Left Tibia with Internal Fixation Device, Open Approach (ICD-10-PCS; 2025-08-30)
PROC: 0QSK04Z Reposition Left Fibula with Internal Fixation Device, Open Approach (ICD-10-PCS; 2025-08-30)
DX: M80.072A Age-related osteoporosis with current pathological fracture, left ankle and foot, initial encounter for fracture (principal); F11.20 Opioid dependence, uncomplicated; I10 Essential (primary) hypertension; E78.5 Hyperlipidemia, unspecified; G89.29 Other chronic pain; G62.9 Polyneuropathy, unspecified; S70.02XA Contusion of left hip, initial encounter; S82.51XA Displaced fracture of medial malleolus of right tibia, initial encounter for closed fracture; W01.0XXA Fall on same level from slipping, tripping and stumbling without subsequent striking against object, initial encounter; Z79.82 Long term (current) use of aspirin; Z96.641 Presence of right artificial hip joint; Z96.653 Presence of artificial knee joint, bilateral
CPT/HCPCS: 29515; 73502; 73590; 73610; 73721; 76000; 80048; 80053; 85027; 87070; 93005; 97163; 97167; 99285; C1713; C1769